=== PATIENT | male | born 1975 | race African-American/Black ===

== ENCOUNTER 2021-08-17 15:01 | Inpatient (IN) | payer OTHER ==
[2021-08-17 15:31] VITALS: BMI 22.8
[2021-08-17] MEDS ORDERED: chlordiazePOXIDE HCL 25 MG CAPSULE PO PRN (16:12)
[2021-08-17] MEDS ORDERED: LOPERAMIDE HCL 2 MG CAPSULE PO PRN (16:12)
[2021-08-17] MEDS ORDERED: ACETAMINOPHEN 325 MG TABLET (FP) PO PRN ×2 (16:12)
[2021-08-17] MEDS ORDERED: BISMUTH SUBSALICYLATE 524 MG/30 ML PO PRN (16:12)
[2021-08-17] MEDS ORDERED: MAGNESIUM CITRATE 300 ML BOTTLE PO PRN (16:12)
[2021-08-17] MEDS ORDERED: MAGNESIUM HYDROX 2400MG/30ML ORAL SUSPENSION 30 ML CUP PO PRN (16:12)
[2021-08-17] MEDS ORDERED: MENTHOL/PHENOL 1 EACH UD MM PRN (16:12)
[2021-08-17] MEDS ORDERED: IBUPROFEN 400 MG TABLET (FP) PO PRN (16:12)
[2021-08-17] MEDS ORDERED: METHOCARBAMOL 500 MG TABLET PO PRN (16:12)
[2021-08-17] MEDS ORDERED: ONDANSETRON *ODT* 4 MG TABLET SL PRN (16:12)
[2021-08-17] MEDS ORDERED: NICOTINE 10 MG CARTRIDGE (INHALER) IH PRN (16:12)
[2021-08-17] MEDS ORDERED: MAG HYDROX/AL HYDROX/SIMETH 30 ML UNIT-DOSE CUP PO PRN (16:12)
[2021-08-17] MEDS ORDERED: COLLOIDAL OATMEAL 1 BAR EACH TP PRN (16:15)
[2021-08-17] MEDS: NICOTINE 14 MG/24 HOURS TOPICAL PATCH TD SCH (23:25)
[2021-08-17] MEDS ORDERED: chlordiazePOXIDE HCL 25 MG CAPSULE ONE (23:28)
[2021-08-17] MEDS ORDERED: hydrOXYzine PAMOATE 25 MG CAPSULE (FP) PO ONE (23:28)
[2021-08-17] MEDS: MELATONIN 5 MG TABLETS PO SCH (23:30)
[2021-08-17] MEDS: PRENATAL VITAMINS W/ FOLIC ACID TABLET (FP) PO SCH (23:30)
[2021-08-17] MEDS: hydrOXYzine PAMOATE 25 MG CAPSULE (FP) PO SCH (23:31)
[2021-08-17] MEDS: chlordiazePOXIDE HCL 25 MG CAPSULE PO SCH (23:31)
[2021-08-17] MEDS: THIAMINE HCL 100 MG TABLET (FP) PO SCH (23:31)
[2021-08-18] MEDS: hydrOXYzine PAMOATE 25 MG CAPSULE (FP) PO SCH ×6 (00:30→22:13)
[2021-08-18] MEDS: chlordiazePOXIDE HCL 25 MG CAPSULE PO SCH ×5 (00:31→22:13)
[2021-08-18] MEDS: NICOTINE 14 MG/24 HOURS TOPICAL PATCH TD SCH (10:18)
[2021-08-18] MEDS: amLODIPine BESYLATE 10 MG TABLET (FP) PO SCH (10:18)
[2021-08-18] MEDS: PRENATAL VITAMINS W/ FOLIC ACID TABLET (FP) PO SCH (10:18)
[2021-08-18] MEDS ORDERED: cloNIDine HCL 0.1 MG TABLET PO PRN (11:06)
[2021-08-18 11:18] LABS: ALBUMIN 3.3 g/dl (3.4-5.0); CALCIUM 9.2 mg/dL (8.5-10.1)
[2021-08-18 11:21] LABS: CREATININE 1.4 mg/dL (0.55-1.3)
[2021-08-18 11:22] LABS: BILIRUBIN,TOTAL 0.7 mg/dL (0.2-1); TOT PROT 6.6 g/dl (6.4-8.2)
[2021-08-18 11:28] LABS: HEMATOCRIT 35.4 % (35.4-49); HEMOGLOBIN 11.8 GM/dL (11.7-16.9); MCH 25.5 pg (25.7-33.7); MCHC 33.3 g/dl (32.0-35.9); MEAN CELL VOLUME 76.6 fl (80-96); MEAN PLT VOLUME 8.1 fl (7.5-11.1); PLATELET COUNT 226 10^3/uL (134-434); RBC 4.62 M/mm3 (4.00-5.60); RDW 15.8 % (11.9-15.9)
[2021-08-18] MEDS: traZODone HCL 50 MG TABLET (FP) PO SCH (22:13)
[2021-08-18] MEDS: THIAMINE HCL 100 MG TABLET (FP) PO SCH (22:13)
[2021-08-18] MEDS: MELATONIN 5 MG TABLETS PO SCH (22:38)
[2021-08-19] MEDS: chlordiazePOXIDE HCL 25 MG CAPSULE PO SCH ×4 (06:15→22:52)
[2021-08-19] MEDS: hydrOXYzine PAMOATE 25 MG CAPSULE (FP) PO SCH ×5 (06:15→22:50)
[2021-08-19] MEDS: amLODIPine BESYLATE 10 MG TABLET (FP) PO SCH (10:18)
[2021-08-19] MEDS: ESCITALOPRAM OXALATE 10 MG TABLET PO SCH (10:18)
[2021-08-19] MEDS: PRENATAL VITAMINS W/ FOLIC ACID TABLET (FP) PO SCH (10:19)
[2021-08-19] MEDS: NICOTINE 14 MG/24 HOURS TOPICAL PATCH TD SCH (10:19)
[2021-08-19 14:07] LABS: SARS-CoV-2 NAA Not Detected (Not Detected)
[2021-08-19] MEDS: MELATONIN 5 MG TABLETS PO SCH (22:50)
[2021-08-19] MEDS: THIAMINE HCL 100 MG TABLET (FP) PO SCH (22:50)
[2021-08-19] MEDS: traZODone HCL 50 MG TABLET (FP) PO SCH (22:51)
[2021-08-20] MEDS ORDERED: chlordiazePOXIDE HCL 10 MG CAPSULE PO PRN
[2021-08-20] MEDS: hydrOXYzine PAMOATE 25 MG CAPSULE (FP) PO SCH ×2 (06:02→10:40)
[2021-08-20] MEDS: chlordiazePOXIDE HCL 10 MG CAPSULE PO SCH ×4 (06:02→22:21)
[2021-08-20] MEDS: ESCITALOPRAM OXALATE 10 MG TABLET PO SCH (10:40)
[2021-08-20] MEDS: amLODIPine BESYLATE 10 MG TABLET (FP) PO SCH (10:40)
[2021-08-20] MEDS: PRENATAL VITAMINS W/ FOLIC ACID TABLET (FP) PO SCH (10:41)
[2021-08-20] MEDS: NICOTINE 14 MG/24 HOURS TOPICAL PATCH TD SCH (10:41)
[2021-08-20] MEDS: traZODone HCL 50 MG TABLET (FP) PO SCH (22:20)
[2021-08-20] MEDS: THIAMINE HCL 100 MG TABLET (FP) PO SCH (22:21)
[2021-08-20] MEDS: hydrOXYzine PAMOATE 25 MG CAPSULE (FP) PO PRN (22:21)
[2021-08-20] MEDS: MELATONIN 5 MG TABLETS PO SCH (22:23)
[2021-08-21] MEDS: chlordiazePOXIDE HCL 10 MG CAPSULE PO SCH ×2 (05:35→18:06)
[2021-08-21] MEDS: amLODIPine BESYLATE 10 MG TABLET (FP) PO SCH (10:20)
[2021-08-21] MEDS: ESCITALOPRAM OXALATE 10 MG TABLET PO SCH (10:20)
[2021-08-21] MEDS: NICOTINE 14 MG/24 HOURS TOPICAL PATCH TD SCH (10:20)
[2021-08-21] MEDS: PRENATAL VITAMINS W/ FOLIC ACID TABLET (FP) PO SCH (10:21)
[2021-08-21] MEDS: HYDROCHLOROTHIAZIDE 25 MG TABLET (FP) PO SCH (10:58)
[2021-08-21] MEDS: LISINOPRIL 10 MG TABLET PO SCH (10:58)
[2021-08-21] MEDS: hydrOXYzine PAMOATE 25 MG CAPSULE (FP) PO PRN ×2 (10:58→22:25)
[2021-08-21] MEDS: MELATONIN 5 MG TABLETS PO SCH (22:26)
[2021-08-21] MEDS: THIAMINE HCL 100 MG TABLET (FP) PO SCH (22:26)
[2021-08-21] MEDS: traZODone HCL 50 MG TABLET (FP) PO SCH (22:26)
[2021-08-22] MEDS ORDERED: chlordiazePOXIDE HCL 10 MG CAPSULE PO ONE (05:00)
[2021-08-22 09:03] VITALS: BP 121/67; PULSE 61; TEMP 97.1
[2021-08-22] MEDS: LISINOPRIL 10 MG TABLET PO SCH (10:38)
[2021-08-22] MEDS: HYDROCHLOROTHIAZIDE 25 MG TABLET (FP) PO SCH (10:38)
[2021-08-22] MEDS: PRENATAL VITAMINS W/ FOLIC ACID TABLET (FP) PO SCH (10:38)
[2021-08-22] MEDS: ESCITALOPRAM OXALATE 10 MG TABLET PO SCH (10:38)
[2021-08-22] MEDS: NICOTINE 14 MG/24 HOURS TOPICAL PATCH TD SCH (10:38)
== END 2021-08-22 11:55 | disposition home or self-care (01) | DRG 774 ==
LOC: YASAS 15:01 → Y3N 08-18 01:12
PROVIDERS: ADMIT Allergy & Immunology; ATTEND Allergy & Immunology
PROC: HZ2ZZZZ Detoxification Services for Substance Abuse Treatment (ICD-10-PCS; principal; 2021-08-18)
DX: F10.230 Alcohol dependence with withdrawal, uncomplicated (principal); F14.20 Cocaine dependence, uncomplicated; F13.20 Sedative, hypnotic or anxiolytic dependence, uncomplicated; F12.20 Cannabis dependence, uncomplicated; F17.210 Nicotine dependence, cigarettes, uncomplicated; F25.9 Schizoaffective disorder, unspecified; F19.24 Other psychoactive substance dependence with psychoactive substance-induced mood disorder; I10 Essential (primary) hypertension; Z86.2 Personal history of diseases of the blood and blood-forming organs and certain disorders involving the immune mechanism; Z86.11 Personal history of tuberculosis; Z87.828 Personal history of other (healed) physical injury and trauma; Z91.19 Patient's noncompliance with other medical treatment and regimen
CPT/HCPCS: 36415; 71046-TC-FY; 80053; 85027; 86780; 93005; 93010; C9803; J0735; U0003; U0005